=== PATIENT | female | born 1955 | race Caucasian/White ===

== ENCOUNTER 2023-11-21 08:05 | Emergency (ER) | payer MEDICARE, OTHER, SELFPAY ==
[2023-11-21 08:08] VITALS: BP 182/88
--- NOTE | 2023-11-21 08:51 | ED.GENMED ---
History of Present Illness
General
Chief Complaint: Head Injury
Source: patient
Time Seen by Provider: 11/21/23 08:22
History of Present Illness
History of Present Illness:
68-year-old female presents to the emergency room complaining of head injury. Patient fell struck the left side of her head on the side of her bed last night. She did not lose consciousness. She denies having any nausea, vomiting or focal
weakness. Patient awoke this morning and thought she should get checked out. She denies any current nausea, headache. She does have tenderness in the area where she struck her head. She does not take any oral anticoagulants.
Phy Exam
Physical Exam
Physical Exam:
General: Awake, Alert, Oriented X3. No acute distress.
Vitals: unremarkable
Head: Atraumatic
Eyes: Pupils equal, EOMI
Throat: Airway intact, no exudates
Neck: Trachea midline
Lungs: Clear and equal b/l
Heart: Regular rate, no murmurs
Abd: Soft, Nontender, No pulsatile mass
Neuro: Cranial nerves intact, muscle strength equal bilaterally
Skin: Warm, dry, no rash
Extremities: pulses equal b/l, no edema
Course
Vital Signs
Initial and Last Documented VS:
Initial Vital Signs
Temp Pulse Resp BP Pulse Ox
97.9 F 81 18 182/88 97
11/21/23 08:08 11/21/23 08:08 11/21/23 08:08 11/21/23 08:08 11/21/23 08:08
Last Documented Vital Signs
Temp Pulse Resp BP Pulse Ox
97.9 F 72 16 144/76 99
11/21/23 08:08 11/21/23 09:49 11/21/23 09:49 11/21/23 09:49 11/21/23 09:49
MDM/Problems Addressed
Differential Diagnosis Includes:
Contusion, concussion, subdural
MDM/Problems Addressed:
Patient has an essentially normal exam. She has minimal symptoms at this time. Suspicion for intracranial bleeding is extremely low and probably does not justify radiation exposure. Patient will be discharged home and will return if she has any
progression of her symptoms.
*Pulse Oximetry
Patient hypoxic: no
*Critical Care Note
Total Time (30-74mins, 75-104mins- exclusive of procedures): Not Applicable
ED Attending Note
-
Portions of this chart may have been created with voice recognition software.� Occasional wrong word or��sound alike� substitutions may have occurred due to the inherent limitations of voice recognition software.
Discharge Plan
Departure
Patient Disposition: Home (Routine Discharge)
Date of Disposition: 11/21/23
Time of Disposition: 08:51
Patient with high blood pressure during this ER visit?: Yes
Condition: Good
Discharge Problem:
Head injury
Instructions: Minor Head Injury (DC)
Referrals:
Radha Adams CRNP [Family Provider] -
Interventions
Interventions:
*Risk Screen - Suicide Last Done: 11/21/23 09:49
*General Assessment Last Done: 11/21/23 09:49
*Neglect/Abuse Screening Last Done: 11/21/23 09:49
ED- Fall Risk Assessment Last Done: 11/21/23 09:49
*ED COVID-19 Vaccine History Last Done: 11/21/23 10:08
*Nursing Disposition Last Done: 11/21/23 09:49
ED- Neurological Assessment Last Done: 11/21/23 09:46
ED-Skin Assessment Last Done: 11/21/23 09:46
Discharge Date and Time
Discharge Date/Time: 11/21/23 10:07
Print Language: ARMENIAN
[2023-11-21 09:49] VITALS: BP 144/76
== END 2023-11-21 10:07 | disposition home or self-care (01) ==
LOC: EMR 08:05
PROVIDERS: EMERGENCY PHYSICIAN Emergency Medicine; FAMILY PHYSICIAN Nurse Practitioner Family
DX: S09.90XA Unspecified injury of head, initial encounter (principal); W22.03XA Walked into furniture, initial encounter; R03.0 Elevated blood-pressure reading, without diagnosis of hypertension
CPT/HCPCS: 99283